=== PATIENT | male | born 1960 | race Asian ===

== ENCOUNTER 2018-01-20 09:57 | Emergency (ER) | payer OTHER ==
[2018-01-20] MEDS: SOD CHLORIDE 0.9% 1,000 ML IV (11:42)
[2018-01-20] MEDS: ENALAPRILAT 1.25 MG INJ IV (11:43)
[2018-01-20 11:52] LABS: ADD MAN DIFF? NO
[2018-01-20 11:54] LABS: BASOPHIL # 0.1 10^3/ul (0.0-0.1); BASOPHILS % 0.5 % (0.0-2.0); EOSINOPHILS # 0.1 10^3/ul (0.0-0.5); EOSINOPHILS % 0.6 % (0.0-7.0); HEMOGLOBIN 14.3 g/dl (14.0-18.0); LYMPHOCYTES # 1.4 10^3/ul (0.8-2.9); LYMPHOCYTES % 10.2 % (15.0-51.0); MEAN CORPUSCULAR HEMOGLOBIN 28.3 pg (29.0-33.0); MEAN CORPUSCULAR HGB CONC 33.3 g/dl (32.0-37.0); MEAN PLATELET VOLUME 10.1 fl (7.4-10.4); MONOCYTE # 0.8 10^3/ul (0.3-0.9); MONOCYTES % 5.8 % (0.0-11.0); NEUTROPHIL # 11.5 10^3/ul (1.6-7.5); NEUTROPHILS % 82.5 % (39.0-77.0); PLATELET COUNT 226 10^3/UL (140-415); RED BLOOD COUNT 5.06 10^6/ul (4.70-6.10); RED CELL DISTRIBUTION WIDTH 12.7 % (11.5-14.5)
[2018-01-20 12:14] LABS: ALANINE AMINOTRANSFERASE 30 IU/L (13-69); ALBUMIN 3.8 g/dl (3.3-4.9); ALBUMIN/GLOBULIN RATIO 1.22; ALKALINE PHOSPHATASE 57 IU/L (42-121); ANION GAP 11 (5-13); ASPARTATE AMINO TRANSFERASE 25 IU/L (15-46); BILIRUBIN,INDIRECT 0.1 mg/dl (0-1.1); BILIRUBIN,TOTAL 0.1 mg/dl (0.2-1.3); BLOOD UREA NITROGEN 14 mg/dl (7-20); CALCIUM 9.4 mg/dl (8.4-10.2); CARBON DIOXIDE 26 mmol/L (21-31); CHLORIDE 105 mmol/L (97-110); CREATININE 0.91 mg/dl (0.61-1.24); Estimated GFR > 60 mL/min (>60); GLUCOSE 68 mg/dl (70-220); LIPASE 626 U/L (23-300); POTASSIUM 4.1 mmol/L (3.5-5.1); SODIUM 142 mmol/L (135-144); TOTAL PROTEIN 6.9 g/dl (6.1-8.1)
[2018-01-20 12:26] LABS: TROPONIN-I < 0.012 ng/ml (0.000-0.120)
[2018-01-20] MEDS: ONDANSETRON 4 MG INJ IV (12:40)
[2018-01-20 12:56] LABS: ADD UMIC NO; UR ASCORBIC ACID NEGATIVE (NEGATIVE); UR BILIRUBIN (Dip) NEGATIVE (NEGATIVE); UR BLOOD (Dip) NEGATIVE (NEGATIVE); UR CLARITY CLEAR (CLEAR); UR COLOR STRAW (YELLOW); UR GLUCOSE (Dip) NEGATIVE (NEGATIVE); UR KETONES (Dip) NEGATIVE (NEGATIVE); UR LEUKOCYTE ESTERASE (Dip) NEGATIVE Leu/ul (NEGATIVE); UR NITRITE (Dip) NEGATIVE (NEGATIVE); UR SPECIFIC GRAVITY (Dip) 1.004 (1.003-1.030); UR TOTAL PROTEIN (Dip) NEGATIVE (NEGATIVE); UR UROBILINOGEN (Dip) NEGATIVE (NEGATIVE)
== END 2018-01-20 15:25 | disposition home or self-care (01) ==
LOC: E/R 09:57
DX: R42 Dizziness and giddiness (principal); I10 Essential (primary) hypertension; E11.9 Type 2 diabetes mellitus without complications; Z79.82 Long term (current) use of aspirin; Z79.84 Long term (current) use of oral hypoglycemic drugs
CPT/HCPCS: 36415; 70450; 80053; 81003; 83690; 84484; 85025; 93005; 96374; 96375; 99285-25